=== PATIENT | female | born 1985 | race Caucasian/White ===

== ENCOUNTER 2018-07-06 19:34 | Emergency (ER) | payer OTHER ==
[~2018-07-06] VITALS: Ht 157.5 cm; Wt 68.0 kg
[~2018-07-06 19:34] MED LIST: IBUPROFEN 800800 M1 PO; TRINATE TABLET1 TAB PO
[2018-07-06 19:44] VITALS: BP 125/70
[2018-07-06] MEDS ORDERED: TRAMADOL 50 MG50 MG PO (19:58)
[2018-07-06] MEDS ORDERED: ROBAXIN 750 MG750 M1 PO (19:58)
[2018-07-06] MEDS ORDERED: PREDNISONE 5 MG5 MG PO (19:58)
== END 2018-07-06 20:06 | disposition home or self-care (01) ==
LOC: M.ERS 19:34
DX: M54.5 Low back pain (principal)

== ENCOUNTER 2018-11-12 10:42 | Emergency (ER) | payer OTHER ==
[~2018-11-12] VITALS: Ht 154.9 cm; Wt 72.6 kg
[~2018-11-12 10:42] MED LIST changes: +PREDNISONE 5 MG5 MG PO; +ROBAXIN 750 MG750 M1 PO; +TRAMADOL 50 MG50 MG PO
[2018-11-12] MEDS ORDERED: TRAMADOL 50 MG50 MG PO (11:09)
[2018-11-12] MEDS ORDERED: PREDNISONE 10 M10 MG PO (11:09)
[2018-11-12] MEDS ORDERED: ROBAXIN 750 MG750 M1 PO (11:09)
[2018-11-12 11:16] VITALS: BP 137/94
== END 2018-11-12 11:16 | disposition home or self-care (01) ==
LOC: M.ERS 10:42
DX: S39.012A Strain of muscle, fascia and tendon of lower back, initial encounter (principal); X50.0XXA Overexertion from strenuous movement or load, initial encounter; Y92.89 Other specified places as the place of occurrence of the external cause; Y99.0 Civilian activity done for income or pay; Y99.8 Other external cause status

== ENCOUNTER 2019-03-14 11:37 | Emergency (ER) | payer OTHER ==
[~2019-03-14] VITALS: Ht 154.9 cm; Wt 80.3 kg
[~2019-03-14 11:37] MED LIST changes: +PREDNISONE 10 M10 MG PO
[2019-03-14] MEDS ORDERED: MEDROLDOSEPACK PO (13:08)
[2019-03-14] MEDS ORDERED: LIDODERM1 EACH TRANSDERM (13:08)
[2019-03-14] MEDS ORDERED: ACETAMINOPHEN-1 EAC1 PO (13:08)
[2019-03-14 13:32] VITALS: BP 119/68
== END 2019-03-14 13:32 | disposition home or self-care (01) ==
LOC: M.ERS 11:37
DX: M54.9 Dorsalgia, unspecified (principal); F17.200 Nicotine dependence, unspecified, uncomplicated

== ENCOUNTER 2020-12-03 09:59 | Emergency (ER) | payer OTHER ==
[~2020-12-03] VITALS: Ht 152.4 cm; Wt 90.7 kg
[~2020-12-03 09:59] MED LIST changes: +ACETAMINOPHEN-1 EAC1 PO; +LIDODERM1 EACH TRANSDERM; +MEDROLDOSEPACK PO
[2020-12-03] MEDS ORDERED: NAPROSYN500 MG PO (11:22)
[2020-12-03 11:42] VITALS: BP 114/78
== END 2020-12-03 11:44 | disposition home or self-care (01) ==
LOC: M.ERS 09:59
DX: S60.211A Contusion of right wrist, initial encounter (principal); W22.8XXA Striking against or struck by other objects, initial encounter; Y93.89 Activity, other specified; Y92.89 Other specified places as the place of occurrence of the external cause; Y99.8 Other external cause status